=== PATIENT | female | born 1980 | race Caucasian/White ===

== ENCOUNTER 2020-12-04 01:26 | Emergency (ER) | payer OTHER ==
[~2020-12-04] VITALS: Ht 165.1 cm; Wt 59.0 kg
[2020-12-04] MEDS ORDERED: AMOXICILLIN500 M2 PO (02:15)
== END 2020-12-04 02:31 | disposition home or self-care (01) ==
LOC: ED 01:26
DX: K04.7 Periapical abscess without sinus (principal); F17.200 Nicotine dependence, unspecified, uncomplicated